=== PATIENT | male | born 1950 | race Caucasian/White ===

== ENCOUNTER 2021-11-09 18:14 | Inpatient (IN) | payer MEDICARE, BC ==
[~2021-11-09] VITALS: Ht 177.8 cm; Wt 77.7 kg
[2021-11-09 19:06] LABS: BASOPHILS # (AUTO) 0.1 X10'3 (0-0.2); BASOPHILS % (AUTO) 0.6 % (0-1); EOSINOPHILS # (AUTO) 0.1 X10'3 (0-0.9); EOSINOPHILS % (AUTO) 0.9 % (0-6); HEMATOCRIT 42.3 % (42.0-52.0); HEMOGLOBIN 14.2 g/dl (14.0-17.9); LYMPHOCYTES # (AUTO) 2.4 X10'3 (1.1-4.8); LYMPHOCYTES % (AUTO) 24.9 % (21-51); MEAN CORPUSCULAR HEMOGLOBIN 31.9 PG (27.0-31.0); MEAN CORPUSCULAR HGB CONC 33.5 g/dL (33.0-36.5); MEAN CORPUSCULAR VOLUME 95.2 FL (78-98); MEAN PLATELET VOLUME 8.6 FL (7.4-10.4); MONOCYTES # (AUTO) 0.9 X10'3 (0-0.9); MONOCYTES % (AUTO) 8.9 % (2-12); NEUTROPHILS # (AUTO) 6.2 X10'3 (1.8-7.7); NEUTROPHILS % (AUTO) 64.7 % (42-75); PLATELET COUNT 204 X10'3 (140-440); RED BLOOD COUNT 4.44 X10'6 (4.70-6.10); RED CELL DISTRIBUTION WIDTH 13.5 % (11.5-14.5); WHITE BLOOD COUNT 9.7 X10'3 (4.5-11.0)
[2021-11-09 19:17] LABS: ALANINE AMINOTRANSFERASE 26 U/L (12-78); ALBUMIN 3.3 G/DL (3.4-5.0); ALBUMIN/GLOBULIN RATIO 1.1 (1.1-1.5); ALKALINE PHOSPHATASE 78 IU/L (46-116); ANION GAP 8 (8-16); ASPARTATE AMINO TRANSFERASE 16 U/L (10-37); BILIRUBIN,TOTAL 0.3 MG/DL (0.1-1.0); BLOOD UREA NITROGEN 15 MG/DL (7-18); BUN/CREATININE RATIO 23.8 (5.4-32.0); CALCIUM 8.4 MG/DL (8.5-10.1); CHLORIDE 111 MMOL/L (99-107); CREATININE 0.63 MG/DL (0.60-1.10); GLUCOSE 104 MG/DL (70-104); POTASSIUM 3.7 MMOL/L (3.5-5.1); SODIUM 144 MMOL/L (135-145); TOTAL CARBON DIOXIDE 24.7 MMOL/L (24-32); TOTAL PROTEIN 6.2 G/DL (6.4-8.2); eGFR > 90 ML/MIN
[2021-11-09] MEDS ORDERED: heparin 10,000 units/1 ML INJ IV PRN (19:35)
[2021-11-09] MEDS ORDERED: magnesium 4gm in 100ml NS 100 ML IV PRN (19:45)
[2021-11-09] MEDS ORDERED: mag hydrox/Alum hydrox/simeth 30ml oral suspension PO PRN (19:45)
[2021-11-09] MEDS ORDERED: potassium CL 10mEq/100ml bag 100 ML IV PRN (19:45)
[2021-11-09] MEDS ORDERED: ondansetron/PF 4mg/2ml inj IV PRN (19:45)
[2021-11-09] MEDS ORDERED: acetaminophen 325mg tablet PO PRN ×2 (19:45)
[2021-11-09] MEDS ORDERED: magnesium Cl slow-release 64mg tablet PO PRN (19:45)
[2021-11-09] MEDS ORDERED: magnesium hydroxide 30ml (MOM) UD suspension PO PRN (19:45)
[2021-11-09] MEDS ORDERED: POTASSIUM BICARB 20meq eff tab 20 MEQ TABLET.EFF PO PRN ×2 (19:45)
[2021-11-09] MEDS ORDERED: magnesium 2GM in 50ml NS 50 ML IV PRN (19:45)
[2021-11-09] MEDS ORDERED: morphine 2 MG/ML inj. syringe IV PRN (19:45)
[2021-11-09] MEDS ORDERED: metoprolol tartrate 50mg tablet PO SCH (20:00)
[2021-11-09] MEDS: docusate sod 100mg capsule PO SCH (20:00)
[2021-11-09 20:10] LABS: HEMOGLOBIN A1C 5.3 % (4.5-6.2)
[2021-11-09] MEDS: K and/or MAG REPLACEMENT MC SCH (20:13)
[2021-11-09] MEDS: heparin 25,000 UNIT/250ml bag 250 ML IV SCH (20:46)
--- NOTE | 2021-11-09 20:55 | NUR ---
Heparin infusion continued previously from [place]. Heparin rate changed to this hospital's parameters. PTT ordered six hours out.
[2021-11-09] MEDS ORDERED: phenobarbital 30mg tablet PO ONE (21:00)
--- NOTE | 2021-11-09 21:03 | NUR ---
Patient states takes 90mg of Phenobarbital at home at bedtime. Doctor notified and given order to give 90mg of Phenobarbital at bedtime and to get a trough lab level. Both ordered.
[2021-11-09] MEDS: atorvastatin 20mg tablet PO SCH (21:18)
[2021-11-09] MEDS: phenobarbital 30mg tablet PO SCH (21:18)
--- NOTE | 2021-11-09 21:28 | NUR ---
Phenobarbital changed to 30mg three times a day per patient report. Two 30mg tablets wasted with Herman PAGAN
[2021-11-09 23:43] VITALS: BP 144/81
[2021-11-09 23:56] LABS: MAGNESIUM 1.9 MG/DL (1.5-2.4)
[2021-11-10] MEDS: morphine 2 MG/ML inj. syringe IV PRN ×3 (01:32→13:19)
[2021-11-10 02:00] VITALS: BP 135/78
[2021-11-10 03:40] LABS: BASOPHILS % (AUTO) 0.5 % (0-1); EOSINOPHILS # (AUTO) 0.1 X10'3 (0-0.9); EOSINOPHILS % (AUTO) 1.4 % (0-6); HEMATOCRIT 41.1 % (42.0-52.0); LYMPHOCYTES % (AUTO) 23.3 % (21-51); MEAN CORPUSCULAR HEMOGLOBIN 31.5 PG (27.0-31.0); MEAN CORPUSCULAR HGB CONC 34.1 g/dL (33.0-36.5); MEAN CORPUSCULAR VOLUME 92.6 FL (78-98); MEAN PLATELET VOLUME 8.5 FL (7.4-10.4); MONOCYTES # (AUTO) 0.7 X10'3 (0-0.9); MONOCYTES % (AUTO) 7.9 % (2-12); NEUTROPHILS # (AUTO) 5.9 X10'3 (1.8-7.7); NEUTROPHILS % (AUTO) 66.9 % (42-75); PLATELET COUNT 190 X10'3 (140-440); RED BLOOD COUNT 4.44 X10'6 (4.70-6.10); RED CELL DISTRIBUTION WIDTH 13.2 % (11.5-14.5); WHITE BLOOD COUNT 8.8 X10'3 (4.5-11.0)
[2021-11-10 03:58] LABS: ALANINE AMINOTRANSFERASE 28 U/L (12-78); ALBUMIN 3.5 G/DL (3.4-5.0); ALBUMIN/GLOBULIN RATIO 1.2 (1.1-1.5); ALKALINE PHOSPHATASE 78 IU/L (46-116); ANION GAP 8 (8-16); ASPARTATE AMINO TRANSFERASE 18 U/L (10-37); BILIRUBIN,TOTAL 0.4 MG/DL (0.1-1.0); BLOOD UREA NITROGEN 15 MG/DL (7-18); BUN/CREATININE RATIO 23.4 (5.4-32.0); CALCIUM 8.4 MG/DL (8.5-10.1); CHLORIDE 108 MMOL/L (99-107); CHOL/HDL RATIO 3.2 (0.00-4.99); CHOLESTEROL 198 MG/DL (0-200); CREATININE 0.64 MG/DL (0.60-1.10); GLUCOSE 96 MG/DL (70-104); HDL CHOLESTEROL 61 MG/DL (35-60); LDL CHOLESTEROL 118 MG/DL (50-100); MAGNESIUM 1.8 MG/DL (1.5-2.4); POTASSIUM 3.7 MMOL/L (3.5-5.1); SODIUM 142 MMOL/L (135-145); TOTAL CARBON DIOXIDE 25.6 MMOL/L (24-32); TOTAL PROTEIN 6.4 G/DL (6.4-8.2); TRIGLYCERIDES 72 MG/DL (20-135); eGFR > 90 ML/MIN
--- NOTE | 2021-11-10 04:37 | NUR ---
Notified Dr. Moise of troponin critical 120.
--- NOTE | 2021-11-10 04:50 | NUR ---
Called lab, as PTT still hasn't resulted Addendum: 11/10/21 at 0453 by Bennie Charlton RN Spoke with Rajan, stated that it was a "small technical error, didn't hit start".
[2021-11-10] MEDS: heparin 10,000 units/1 ML INJ IV PRN ×2 (05:47→12:25)
[2021-11-10 06:00] VITALS: BP 129/79
--- NOTE | 2021-11-10 07:29 | NUR ---
Pt. requesting phenobarbital now.
[2021-11-10] MEDS: metoprolol tartrate 25mg tablet PO SCH ×2 (08:00→22:29)
[2021-11-10] MEDS: K and/or MAG REPLACEMENT MC SCH ×2 (08:00→20:00)
[2021-11-10] MEDS: atorvastatin 20mg tablet PO SCH (08:28)
[2021-11-10] MEDS: docusate sod 100mg capsule PO SCH ×2 (08:28→20:00)
[2021-11-10] MEDS: phenobarbital 30mg tablet PO SCH ×3 (08:29→22:30)
[2021-11-10 11:00] VITALS: BP 146/82
[2021-11-10] MEDS: heparin 25,000 UNIT/250ml bag 250 ML IV SCH (12:30)
--- NOTE | 2021-11-10 13:13 | NUR ---
CALLED PHARMACY SPOKE W/ CAROLYNN. LET HER KNOW [facility] DOES NOT HAVE ANY PHENOBARBITAL IN IT AND THAT IT NEEDED TO BE DELIVERED THIS AM. TECH STATES ITS A NARC AND TO GO CHECK [facility] AGAIN AND THAT SHE WILL NOT DELIVER. MEDICATION NOT AVAILABLE.
[2021-11-10] MEDS ORDERED: NO HOME MEDS (13:38)
[2021-11-10] MEDS ORDERED: PHEN30TA49 PO (13:38)
[2021-11-10] MEDS ORDERED: aminophylline 250mg/10ml inj. IV PRN (13:55)
[2021-11-10] MEDS ORDERED: nitroGLYCERIN 0.4mg SUBLingual tab SL PRN (13:55)
[2021-11-10] MEDS ORDERED: metoprolol tartrate 1mg/ml inj IV PRN (13:55)
[2021-11-10] MEDS ORDERED: regadenoson 0.4mg/5ml syringe IV PRN (13:55)
--- NOTE | 2021-11-10 14:33 | NUR ---
Primary RN Rosalva asked me to DC patient heparin gtt per MD orders. Heparin gtt dc'd flushed IV with 10 cc NS. Patients at bedside.
[2021-11-10 15:44] VITALS: BP 142/79
[2021-11-10 18:00] VITALS: BP 162/84
--- NOTE | 2021-11-10 18:28 | NUR ---
Gave report to Jigna PAGAN.
[2021-11-10] MEDS ORDERED: phenobarbital 30mg tablet PO SCH (21:00)
[2021-11-10 22:00] VITALS: BP 141/82
[2021-11-10] MEDS: heparin, porcine 5000 units/ml vial SQ SCH (22:30)
[2021-11-11] VITALS (13 sets, daily range): BP systolic 130–165; BP diastolic 67–90
[2021-11-11 06:34] LABS: BASOPHILS # (AUTO) 0.1 X10'3 (0-0.2); BASOPHILS % (AUTO) 0.8 % (0-1); EOSINOPHILS # (AUTO) 0.1 X10'3 (0-0.9); HEMATOCRIT 47.2 % (42.0-52.0); LYMPHOCYTES # (AUTO) 3.3 X10'3 (1.1-4.8); LYMPHOCYTES % (AUTO) 32.5 % (21-51); MEAN CORPUSCULAR HEMOGLOBIN 31.8 PG (27.0-31.0); MEAN CORPUSCULAR HGB CONC 33.9 g/dL (33.0-36.5); MEAN CORPUSCULAR VOLUME 93.8 FL (78-98); MEAN PLATELET VOLUME 8.9 FL (7.4-10.4); MONOCYTES # (AUTO) 0.9 X10'3 (0-0.9); MONOCYTES % (AUTO) 9.2 % (2-12); NEUTROPHILS # (AUTO) 5.7 X10'3 (1.8-7.7); NEUTROPHILS % (AUTO) 56.5 % (42-75); PLATELET COUNT 241 X10'3 (140-440); RED BLOOD COUNT 5.03 X10'6 (4.70-6.10); RED CELL DISTRIBUTION WIDTH 13.5 % (11.5-14.5); WHITE BLOOD COUNT 10.2 X10'3 (4.5-11.0)
[2021-11-11] MEDS: atorvastatin 20mg tablet PO SCH (07:32)
[2021-11-11] MEDS: phenobarbital 30mg tablet PO SCH ×3 (07:33→21:01)
[2021-11-11] MEDS: heparin, porcine 5000 units/ml vial SQ SCH ×2 (07:33→20:00)
[2021-11-11] MEDS: docusate sod 100mg capsule PO SCH ×2 (07:33→21:02)
[2021-11-11] MEDS: K and/or MAG REPLACEMENT MC SCH ×2 (07:34→20:00)
[2021-11-11 07:35] LABS: ALANINE AMINOTRANSFERASE 30 U/L (12-78); ALBUMIN 3.8 G/DL (3.4-5.0); ALBUMIN/GLOBULIN RATIO 1.2 (1.1-1.5); ALKALINE PHOSPHATASE 99 IU/L (46-116); ANION GAP 9 (8-16); ASPARTATE AMINO TRANSFERASE 23 U/L (10-37); BILIRUBIN,TOTAL 0.6 MG/DL (0.1-1.0); BLOOD UREA NITROGEN 16 MG/DL (7-18); BUN/CREATININE RATIO 20.8 (5.4-32.0); CALCIUM 8.9 MG/DL (8.5-10.1); CHLORIDE 106 MMOL/L (99-107); CREATININE 0.77 MG/DL (0.60-1.10); GLUCOSE 101 MG/DL (70-104); POTASSIUM 4.2 MMOL/L (3.5-5.1); SODIUM 138 MMOL/L (135-145); TOTAL CARBON DIOXIDE 22.8 MMOL/L (24-32); eGFR > 90 ML/MIN
[2021-11-11] MEDS: metoprolol tartrate 25mg tablet PO SCH ×2 (08:00→21:02)
--- NOTE | 2021-11-11 08:40 | NUR ---
Pt.down to Lexiscan with [facility] med staff.
--- NOTE | 2021-11-11 13:08 | NUR ---
Message: Tremayne Kan [id number] Wants to make sure he is treated for the dx you gave him of costochondritis and GERD since he is still have mild CP. Asking for protonix and steroid meds to go home with if you will discharge him. Rosalva [id number]
[2021-11-11] MEDS: aspirin 325mg tablet PO ONE ×2 (13:18→13:19)
[2021-11-11] MEDS: normal saline 1000ml 1,000 ML IV SCH (15:18)
[2021-11-11] MEDS ORDERED: fentaNYL/PF 50MCG/1 ML 2ML syringe ONE (15:27)
[2021-11-11] MEDS ORDERED: diphenhydrAMINE 50 mg/ml inj ONE (15:27)
[2021-11-11] MEDS ORDERED: midazolam 1 mg/ML 2ml injection ONE (15:28)
[2021-11-11] MEDS ORDERED: iohexol 350MG/ML 100ml bottle IV ONE ×2 (15:28→16:28)
--- NOTE | 2021-11-11 16:06 | NUR ---
Pt. down to photographic laboratory technician for angiogram with CORAL
--- NOTE | 2021-11-11 17:42 | NUR ---
[facility] rounding on pt whom just returned from clinical laboratory medical director. Pt. on post-op VS, VSS, R groin site soft. Pt. to lay flat until 2315. Can eat until midnight and then NPO. 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 [facility] states PA will place surgical orders. He wants pt. on heparin drip non-protocol r/t severity of stenosis. Pt. aware and in agreement of POC.
[2021-11-11] MEDS ORDERED: ondansetron/PF 4mg/2ml inj IV PRN (18:10)
[2021-11-11] MEDS ORDERED: HYDROcodone/acetaminophen 10/325mg tab PO PRN (18:15)
[2021-11-11] MEDS ORDERED: HYDROcodone/acetaminophen 5mg/325mg tablet PO PRN (18:15)
[2021-11-11] MEDS ORDERED: proCHLORperazine 10 MG/2 ml inj IV PRN (18:15)
[2021-11-11] MEDS ORDERED: nitroGLYCERIN 0.4mg SUBLingual tab SL PRN (18:15)
[2021-11-11] MEDS ORDERED: OXAZEpam 15mg capsule PO PRN (18:15)
[2021-11-11] MEDS ORDERED: ringers solution, lacted 1,000 ML IV ONE (18:20)
--- NOTE | 2021-11-11 18:51 | NUR ---
Gave report to Lion PAGAN.
[2021-11-11] MEDS ORDERED: insulin glargine (Lantus) pen - multi-dose SQ PRN (18:55)
[2021-11-11] MEDS ORDERED: cefazolin/dext.iso 2gm/100ml 100 ML IV ONE (18:55)
[2021-11-11] MEDS ORDERED: dextrose 50%-water 50ml dispensing syringe IV PRN (18:55)
[2021-11-11] MEDS ORDERED: Insulin Reg/NS 100units/100mL 100 ML IV SCH (18:55)
[2021-11-11] MEDS ORDERED: diphenhydrAMINE 25mg capsule PO PRN (18:55)
[2021-11-11] MEDS ORDERED: ondansetron 4mg rapidly disintigrating tab PO PRN (18:55)
[2021-11-11] MEDS ORDERED: heparin 25,000 UNIT/250ml bag 250 ML IV ONE (19:25)
[2021-11-11 19:33] LABS: CLARITY,URINE CLEAR (Clear); COLOR,URINE YELLOW (Yellow); GLUCOSE, URINE NEGATIVE (Neg); KETONES,URINE 15 mg/dl (Neg); LEUKOCYTE ESTERASE ,URINE NEGATIVE (Neg); NITRITES, URINE NEGATIVE (Neg); OCCULT BLOOD,URINE TRACE-INTACT (Neg); PH,URINE 5.5 (4.8-8.0); PROTEIN,URINE NEGATIVE (Neg); UROBILINOGEN,URINE 0.2 E.U/dL (0.2-1.0)
[2021-11-11 19:35] LABS: UA COLLECTION TYPE CLN CATCH MIDSTREAM
[2021-11-11 19:44] LABS: BACTERIA,URINE NONE SEEN /HPF (Neg); RBC,URINE NONE SEEN /HPF (0-2); WBC,URINE NONE SEEN /HPF (0-4)
[2021-11-11 19:45] LABS: SQUAMOUS EPITHELIAL CELL,UR NONE SEEN /LPF (FEW)
[2021-11-11] MEDS ORDERED: mupirocin 2% ointment 22GM NS SCH (20:00)
[2021-11-11 20:01] LABS: APTT 53 SECONDS (22-32)
--- NOTE | 2021-11-11 20:42 | NUR ---
PATIENT BACK FROM [facility], STILL AWAITING VEIN MAPPING, AND CAROTIDS, LUISA [id number]
[2021-11-11] MEDS: mupirocin 2% nasal ointment 1gm UD NS SCH (21:03)
[2021-11-11 21:26] LABS: ABG BASE EXCESS -0.2 mmol/L (-2.0-2.0); ABG HCO3 24.1 mmol/L (22.0-26.0); ABG OXYGEN SATURATION 94.8 % (94-97); ABG PCO2 (T) 38.5 mmHg (35.0-48.0); ABG PO2 (T) 71.7 mmHg (75.0-100.0); ALLEN'S TEST POSITIVE; FCOHb 0.3 % (0.0-3.9); FMetHb 0.3 % (0.0-1.5); FO2Hb 94.2 % (94-97); TOTAL HEMOGLOBIN 15.9 G/dl (14.0-18.0)
[2021-11-12] VITALS (21 sets, daily range): BP systolic 109–153; BP diastolic 56–86
[2021-11-12] MEDS: normal saline 1000ml 1,000 ML IV SCH (01:20)
[2021-11-12 03:31] LABS: BASOPHILS % (AUTO) 0.4 % (0-1); EOSINOPHILS % (AUTO) 0.3 % (0-6); HEMATOCRIT 43.4 % (42.0-52.0); HEMOGLOBIN 14.6 g/dl (14.0-17.9); LYMPHOCYTES % (AUTO) 19.4 % (21-51); MEAN CORPUSCULAR HEMOGLOBIN 31.4 PG (27.0-31.0); MEAN CORPUSCULAR HGB CONC 33.5 g/dL (33.0-36.5); MEAN CORPUSCULAR VOLUME 93.6 FL (78-98); MEAN PLATELET VOLUME 8.6 FL (7.4-10.4); MONOCYTES # (AUTO) 0.9 X10'3 (0-0.9); MONOCYTES % (AUTO) 8.7 % (2-12); NEUTROPHILS # (AUTO) 7.3 X10'3 (1.8-7.7); NEUTROPHILS % (AUTO) 71.2 % (42-75); PLATELET COUNT 214 X10'3 (140-440); RED BLOOD COUNT 4.64 X10'6 (4.70-6.10); RED CELL DISTRIBUTION WIDTH 13.3 % (11.5-14.5); WHITE BLOOD COUNT 10.2 X10'3 (4.5-11.0)
[2021-11-12 03:51] LABS: ALANINE AMINOTRANSFERASE 30 U/L (12-78); ALBUMIN 3.4 G/DL (3.4-5.0); ALBUMIN/GLOBULIN RATIO 1.2 (1.1-1.5); ALKALINE PHOSPHATASE 90 IU/L (46-116); ANION GAP 11 (8-16); ASPARTATE AMINO TRANSFERASE 20 U/L (10-37); BILIRUBIN,TOTAL 0.5 MG/DL (0.1-1.0); BLOOD UREA NITROGEN 15 MG/DL (7-18); BUN/CREATININE RATIO 21.4 (5.4-32.0); CALCIUM 8.6 MG/DL (8.5-10.1); CHLORIDE 107 MMOL/L (99-107); GLUCOSE 97 MG/DL (70-104); MAGNESIUM 1.9 MG/DL (1.5-2.4); POTASSIUM 3.8 MMOL/L (3.5-5.1); SODIUM 143 MMOL/L (135-145); TOTAL CARBON DIOXIDE 24.6 MMOL/L (24-32); TOTAL PROTEIN 6.3 G/DL (6.4-8.2); eGFR > 90 ML/MIN
[2021-11-12] MEDS ORDERED: famotidine 20mg tablet PO ONE ×2 (04:30→04:40)
[2021-11-12] MEDS ORDERED: gabapentin 400mg capsule PO ONE (04:30)
[2021-11-12] MEDS: mupirocin 2% nasal ointment 1gm UD NS SCH ×2 (05:03→20:08)
[2021-11-12] MEDS ORDERED: NUT.TX.IMPAIRED DIGEST FXN (Ensure Clear) 237 ML PO SCH (05:15)
[2021-11-12] MEDS ORDERED: cefazolin/dext.iso 2gm/100ml 100 ML IV ONE (05:30)
[2021-11-12] MEDS ORDERED: LORazepam 2 mg/ml vial IV ONE ×2 (06:00→07:50)
--- NOTE | 2021-11-12 06:28 | NUR ---
Change of shift report given to EJ Donato. Issues reprioritized. CABG prep completed. pt stable, No acute complaints.
[2021-11-12] MEDS ORDERED: ceFAZolin 1000mg inj ONE ×2 (06:50→11:47)
[2021-11-12] MEDS: docusate sod 100mg capsule PO SCH (08:00)
[2021-11-12] MEDS: heparin, porcine 5000 units/ml vial SQ SCH (08:00)
[2021-11-12] MEDS: phenobarbital 30mg tablet PO SCH (08:00)
[2021-11-12] MEDS ORDERED: sodium bicarbonate (8.4%) 1 mEq/ml syringe ONE (08:00)
[2021-11-12] MEDS ORDERED: aminocaproic acid 250 MG/1 ML inj. ONE ×2 (08:00→08:22)
[2021-11-12] MEDS ORDERED: heparin 10,000 units/1 ML INJ ONE ×2 (08:00)
[2021-11-12] MEDS ORDERED: potassium Cl 2 mEq/ml inj IV ONE (08:00)
[2021-11-12] MEDS ORDERED: phenylephrine 10mg/ml inj. ONE ×2 (08:00→09:46)
[2021-11-12] MEDS: metoprolol tartrate 25mg tablet PO SCH (08:00)
[2021-11-12] MEDS ORDERED: calcium chloride 100 MG/1 ML inj IV ONE (08:00)
[2021-11-12] MEDS ORDERED: MAGNESIUM SULFATE 4 MEQ/ML (5gm/10ml) injection ONE (08:00)
[2021-11-12] MEDS ORDERED: mannitol 12.5gm/50mL VIAL IV ONE (08:00)
[2021-11-12] MEDS ORDERED: aspirin 81mg, enteric-coated 1 TAB TABLET.DR PO SCH (08:00)
[2021-11-12] MEDS: K and/or MAG REPLACEMENT MC SCH (08:00)
[2021-11-12] MEDS ORDERED: albumin (human) 25% 100 ML IV solution IV ONE (08:00)
[2021-11-12] MEDS: atorvastatin 20mg tablet PO SCH (08:00)
[2021-11-12] MEDS ORDERED: papaverine 30 mg/ml 2ml inj. ONE (08:00)
[2021-11-12] MEDS ORDERED: methylPREDNISolone sod succ 1000mg vial ONE (08:00)
[2021-11-12] MEDS ORDERED: LIDOcaine 2% (20 mg/ml) 5ml cardiac syringe ONE (08:00)
[2021-11-12] MEDS ORDERED: amiodarone 50MG/ML inj IV ONE (08:22)
[2021-11-12] MEDS ORDERED: isoflurane 100ml inhalation liquid IH ONE (08:22)
[2021-11-12] MEDS ORDERED: nitroGLYCERIN in D5W 50mg/250ml (Tridil) infusion IV ONE (08:22)
[2021-11-12] MEDS ORDERED: NORepinephrine 8 MG in NS 250 ML BAG (32 mcg/ml) IV ONE (08:22)
[2021-11-12] MEDS ORDERED: ondansetron/PF 4mg/2ml inj ONE (08:22)
[2021-11-12] MEDS ORDERED: protamine sulf. 10mg/ml inj. IV ONE (08:22)
[2021-11-12] MEDS ORDERED: dexamethasone sod phosphate 10mg/ml inj ONE (08:22)
[2021-11-12] MEDS ORDERED: SUFENTANIL CITRATE 50 MCG/ML 2ml ampule IV ONE (08:40)
[2021-11-12] MEDS ORDERED: MIDAZolam 1mg/ml 10ml vial ONE (08:40)
[2021-11-12 09:27] LABS: ABG BASE EXCESS -3.5 mmol/L (-2.0-2.0); ABG OXYGEN SATURATION 99.8 % (94-97); ABG PCO2 36.2 mmHg (35.0-48.0); ABG PO2 369.8 mmHg (75.0-100.0); CL (ABG) 105 mmol/L (98-110); FCOHb 0.5 % (0.0-3.9); FMetHb 0.3 % (0.0-1.5); GLUCOSE (ABG) 125 mg/dl (70-105); IONIZED CA (ABG) 1.14 mmol/L (1.10-1.43); K (ABG) 3.6 mmol/L (3.5-5.0); TOTAL HEMOGLOBIN 14.1 G/dl (14.0-18.0)
[2021-11-12] MEDS ORDERED: phenobarbital sod 130mg/ml inj. IV ONE (09:30)
[2021-11-12] MEDS ORDERED: 0.9 % SODIUM CHLORIDE 10 ML VIAL ONE (09:46)
[2021-11-12] MEDS ORDERED: propofol inj 20 ML IV ONE (09:46)
[2021-11-12] MEDS ORDERED: LIDOcaine 2% (20mg/ml) 5ml vial ONE (09:46)
[2021-11-12] MEDS ORDERED: rocuronium 10mg/ml inj IV ONE ×3 (09:46)
[2021-11-12] MEDS ORDERED: papaverine 30 mg/ml 2ml inj. ICAR ONE (09:53)
[2021-11-12] MEDS ORDERED: epiNEPHrine 1 mg/ml inj IR ONE (09:55)
[2021-11-12] MEDS ORDERED: heparin 10,000 units/1 ML INJ IR ONE (09:56)
[2021-11-12] MEDS ORDERED: MESSAGE TO PHARMACY IJ ONE (10:00)
[2021-11-12] MEDS ORDERED: MESSAGE TO NURSING PO ONE ×5 (10:00)
[2021-11-12] MEDS ORDERED: fentaNYL/PF 50MCG/1 ML 2ML syringe IV PRN (10:35)
[2021-11-12] MEDS ORDERED: midazolam 1 mg/ML 2ml injection IV PRN (10:35)
[2021-11-12] MEDS ORDERED: propofol 1000mg/100ml bottle 100 ML IV SCH (10:35)
[2021-11-12] MEDS ORDERED: FENTANYL-0.9 % NACL/PF 100 ML IV PRN (10:35)
[2021-11-12 10:42] LABS: ABG BASE EXCESS VENOUS -0.5 mmol/L (-2.0 - 2.0); ABG HCO3 VENOUS 24.1 mmol/L (21.0-28.0); ABG PCO2 VENOUS 39.3 mmHg (41.0-54.0); CL (ABG) 105 mmol/L (98-110); FCOHb VENOUS 0.3 %; FHHb VENOUS 12.3 %; FMetHb VENOUS 0.3 % (0.0 - 0.5); FO2Hb VENOUS 87.1 %; GLUCOSE (ABG) 124 mg/dl (70-105); IONIZED CA (ABG) 1.01 mmol/L (1.10-1.43); K (ABG) 5.6 mmol/L (3.5-5.0); TOTAL HEMOGLOBIN 10.5 G/dl (14.0-18.0)
[2021-11-12 10:47] LABS: ABG HCO3 22.6 mmol/L (22.0-26.0); ABG OXYGEN SATURATION 99.5 % (94-97); ABG PCO2 37.7 mmHg (35.0-48.0); ABG PO2 431.2 mmHg (75.0-100.0); CL (ABG) 105 mmol/L (98-110); FMetHb 0.3 % (0.0-1.5); FO2Hb 99.2 % (94-97); GLUCOSE (ABG) 119 mg/dl (70-105); IONIZED CA (ABG) 1.04 mmol/L (1.10-1.43); K (ABG) 5.4 mmol/L (3.5-5.0); TOTAL HEMOGLOBIN 10.5 G/dl (14.0-18.0)
[2021-11-12] MEDS: amiodarone/D5 360MG/200ML BAG 200 ML IV SCH ×3 (11:00→23:08)
[2021-11-12 11:16] LABS: ABG BASE EXCESS -3.1 mmol/L (-2.0-2.0); ABG HCO3 22.1 mmol/L (22.0-26.0); ABG OXYGEN SATURATION 99.5 % (94-97); ABG PCO2 40.3 mmHg (35.0-48.0); ABG PO2 422.6 mmHg (75.0-100.0); CL (ABG) 106 mmol/L (98-110); FCOHb 0.3 % (0.0-3.9); FMetHb 0.3 % (0.0-1.5); FO2Hb 98.9 % (94-97); GLUCOSE (ABG) 157 mg/dl (70-105); IONIZED CA (ABG) 1.06 mmol/L (1.10-1.43); K (ABG) 4.8 mmol/L (3.5-5.0); TOTAL HEMOGLOBIN 10.9 G/dl (14.0-18.0)
[2021-11-12 11:48] LABS: ABG BASE EXCESS -2.1 mmol/L (-2.0-2.0); ABG OXYGEN SATURATION 99.2 % (94-97); ABG PCO2 40.8 mmHg (35.0-48.0); ABG PO2 230.4 mmHg (75.0-100.0); CL (ABG) 105 mmol/L (98-110); FCOHb 0.3 % (0.0-3.9); FMetHb 0.3 % (0.0-1.5); FO2Hb 98.6 % (94-97); GLUCOSE (ABG) 167 mg/dl (70-105); IONIZED CA (ABG) 1.02 mmol/L (1.10-1.43); K (ABG) 5.4 mmol/L (3.5-5.0); TOTAL HEMOGLOBIN 10.3 G/dl (14.0-18.0)
[2021-11-12 12:24] LABS: ABG BASE EXCESS -3.2 mmol/L (-2.0-2.0); ABG HCO3 19.7 mmol/L (22.0-26.0); ABG OXYGEN SATURATION 99.4 % (94-97); ABG PCO2 28.4 mmHg (35.0-48.0); ABG PO2 257.8 mmHg (75.0-100.0); CL (ABG) 106 mmol/L (98-110); FCOHb 0.1 % (0.0-3.9); FMetHb 0.3 % (0.0-1.5); GLUCOSE (ABG) 159 mg/dl (70-105); IONIZED CA (ABG) 1.18 mmol/L (1.10-1.43); K (ABG) 4.4 mmol/L (3.5-5.0); TOTAL HEMOGLOBIN 10.3 G/dl (14.0-18.0)
[2021-11-12 12:27] LABS: ACTIVATED CLOTTING TIME 120 SEC (101-148)
[2021-11-12] MEDS ORDERED: albumin (Human) 5% 250ml 250 ML IV ONE (13:09)
[2021-11-12] MEDS ORDERED: niCARDipine-NS 40mg/200ml IVPB 200 ML IV PRN (13:10)
[2021-11-12] MEDS ORDERED: sodium phosphate inj. 30 MMOL in dextrose 5%-water 250 ML IV PRN (13:10)
[2021-11-12] MEDS: Insulin Reg/NS 100units/100mL 100 ML IV SCH (13:10)
[2021-11-12] MEDS ORDERED: potassium Cl 20 mEq SR tablet PO PRN (13:10)
[2021-11-12] MEDS ORDERED: dextrose 50%-water 50ml dispensing syringe IV PRN (13:10)
[2021-11-12] MEDS ORDERED: normal saline 250ml IV soln 250 ML IV PRN (13:10)
[2021-11-12] MEDS ORDERED: sodium chloride 0.45% 1,000 ML IV SCH (13:10)
[2021-11-12] MEDS ORDERED: magnesium 4gm in 100ml NS 100 ML IV PRN (13:10)
[2021-11-12] MEDS ORDERED: magnesium hydroxide 30ml (MOM) UD suspension PO PRN (13:10)
[2021-11-12] MEDS ORDERED: Neutra Phos packet PO PRN (13:10)
[2021-11-12] MEDS ORDERED: sodium phosphate inj. 15 MMOL in dextrose 5%-water 250 ML IV PRN (13:10)
[2021-11-12] MEDS ORDERED: potassium CL 10mEq/100ml bag 100 ML IV PRN (13:10)
[2021-11-12] MEDS ORDERED: acetaminophen 325mg tablet PO PRN ×2 (13:10)
[2021-11-12] MEDS ORDERED: bisacodyl 10mg suppository rectal RC PRN (13:10)
[2021-11-12] MEDS ORDERED: metoclopramide 5 mg/ml inj IV PRN (13:10)
[2021-11-12] MEDS ORDERED: magnesium citrate 296ml oral solution PO PRN (13:10)
[2021-11-12] MEDS ORDERED: ondansetron/PF 4mg/2ml inj IV PRN (13:10)
[2021-11-12] MEDS ORDERED: DOPamine 400mg/D5W 250ml 250 ML IV PRN (13:10)
[2021-11-12] MEDS ORDERED: insulin glargine (Lantus) pen - multi-dose SQ PRN (13:10)
[2021-11-12] MEDS ORDERED: nitroGLYCERIN-Tridil 50MG/D5W 250 ML IV PRN (13:10)
[2021-11-12] MEDS ORDERED: mineral oil 133ml enema RC PRN (13:10)
[2021-11-12] MEDS ORDERED: albumin (Human) 5% 250ml 250 ML IV PRN (13:10)
--- NOTE | 2021-11-12 13:24 | NUR ---
CABG Consult: Pt s/p CABGx3 this admit per EMR; would benefit from written/verbal high protein/HH diet eds once appropriate post-op. Addendum: 11/12/21 at [address] Amended: Links added.
--- NOTE | 2021-11-12 13:30 | NUR ---
Received to room 2013, accompanied by MDs and surgical crew. Placed on ventilator, to office services manager, arterial line and PA line pressure zeroed & monitored. Chest tubes to suction at 20 cm. Tabares cath to gravity drainage. Dressings are dry and intact. See assessment record. All vasoactive drugs are infusing via central line.
[2021-11-12 13:52] LABS: BASOPHILS % (AUTO) 0.2 % (0-1); EOSINOPHILS % (AUTO) 0.2 % (0-6); HEMATOCRIT 37.8 % (42.0-52.0); HEMOGLOBIN 12.7 g/dl (14.0-17.9); LYMPHOCYTES # (AUTO) 0.6 X10'3 (1.1-4.8); LYMPHOCYTES % (AUTO) 3.7 % (21-51); MEAN CORPUSCULAR HEMOGLOBIN 31.5 PG (27.0-31.0); MEAN CORPUSCULAR HGB CONC 33.6 g/dL (33.0-36.5); MEAN CORPUSCULAR VOLUME 93.6 FL (78-98); MEAN PLATELET VOLUME 8.5 FL (7.4-10.4); MONOCYTES # (AUTO) 0.8 X10'3 (0-0.9); MONOCYTES % (AUTO) 5.5 % (2-12); NEUTROPHILS # (AUTO) 13.8 X10'3 (1.8-7.7); NEUTROPHILS % (AUTO) 90.4 % (42-75); PLATELET COUNT 132 X10'3 (140-440); RED BLOOD COUNT 4.04 X10'6 (4.70-6.10); WHITE BLOOD COUNT 15.3 X10'3 (4.5-11.0)
[2021-11-12 13:56] LABS: ABG BASE EXCESS -1.1 mmol/L (-2.0-2.0); ABG OXYGEN SATURATION 98.2 % (94-97); ABG PCO2 (T) 40.1 mmHg (35.0-48.0); ABG PO2 (T) 125.7 mmHg (75.0-100.0); FCOHb 0.3 % (0.0-3.9); FMetHb 0.4 % (0.0-1.5); FO2Hb 97.5 % (94-97); PATIENT TEMPERATURE 36.1; PEEP 5 cm H2O; RESPIRATORY RATE 12 b/min; TIDAL VOLUME 550 mL; TOTAL HEMOGLOBIN 13.5 G/dl (14.0-18.0)
[2021-11-12 14:04] LABS: APTT 31 SECONDS (22-32)
[2021-11-12 14:05] LABS: ALANINE AMINOTRANSFERASE 22 U/L (12-78); ALBUMIN 2.6 G/DL (3.4-5.0); ALBUMIN/GLOBULIN RATIO 1.4 (1.1-1.5); ALKALINE PHOSPHATASE 64 IU/L (46-116); ANION GAP 10 (8-16); ASPARTATE AMINO TRANSFERASE 33 U/L (10-37); BILIRUBIN,TOTAL 0.7 MG/DL (0.1-1.0); BLOOD UREA NITROGEN 15 MG/DL (7-18); CALCIUM 7.2 MG/DL (8.5-10.1); CHLORIDE 113 MMOL/L (99-107); CREATININE 0.75 MG/DL (0.60-1.10); GLUCOSE 148 MG/DL (70-104); MAGNESIUM 2.3 MG/DL (1.5-2.4); PHOSPHORUS 1.8 MG/DL (2.3-4.5); POTASSIUM 3.6 MMOL/L (3.5-5.1); SODIUM 148 MMOL/L (135-145); TOTAL PROTEIN 4.5 G/DL (6.4-8.2); eGFR > 90 ML/MIN
[2021-11-12] MEDS: potassium Cl 20mEq/100mL bag 100 ML IV PRN ×3 (14:21→17:09)
[2021-11-12] MEDS: magnesium 2GM in 50ml NS 50 ML IV PRN (14:30)
[2021-11-12] MEDS: phenobarbital sod 130mg/ml inj. IV SCH ×2 (15:20→23:43)
[2021-11-12] MEDS: ceFAZolin/D5W- 1GM premix 50 ML IV SCH (16:28)
--- NOTE | 2021-11-12 18:07 | NUR ---
Update given to Dr. Lopez. aware patient doing well on spontaneous. Per MD, he would like patient extubated once a little more awake and would appreciate a call prior to extubation.
--- NOTE | 2021-11-12 18:19 | NUR ---
Problems reprioritized. Patient report given, questions answered & plan of care reviewed with Adriane PAGAN.
--- NOTE | 2021-11-12 18:20 | NUR ---
Patient in room CICU 2013. I have received report from Osmel PAGAN and had the opportunity to ask questions and assume patient care.
[2021-11-12] MEDS: morphine 2 MG/ML inj. syringe IV PRN ×2 (19:31→21:48)
[2021-11-12] MEDS: mupirocin 2% ointment 22GM NS SCH (20:00)
[2021-11-12] MEDS: sennosides/docusate sodium tablet PO SCH (20:00)
[2021-11-12] MEDS: vancomycin/NS 1 GM ADD-VANTAGE 250 ML IV SCH (20:08)
[2021-11-12 20:30] LABS: BASOPHILS % (AUTO) 0.1 % (0-1); EOSINOPHILS % (AUTO) 0.1 % (0-6); HEMATOCRIT 38.9 % (42.0-52.0); LYMPHOCYTES # (AUTO) 0.4 X10'3 (1.1-4.8); LYMPHOCYTES % (AUTO) 2.5 % (21-51); MEAN CORPUSCULAR HEMOGLOBIN 31.7 PG (27.0-31.0); MEAN CORPUSCULAR HGB CONC 33.5 g/dL (33.0-36.5); MEAN CORPUSCULAR VOLUME 94.8 FL (78-98); MEAN PLATELET VOLUME 8.7 FL (7.4-10.4); MONOCYTES # (AUTO) 0.5 X10'3 (0-0.9); MONOCYTES % (AUTO) 3.3 % (2-12); NEUTROPHILS # (AUTO) 14.7 X10'3 (1.8-7.7); PLATELET COUNT 136 X10'3 (140-440); RED BLOOD COUNT 4.11 X10'6 (4.70-6.10); RED CELL DISTRIBUTION WIDTH 13.5 % (11.5-14.5); WHITE BLOOD COUNT 15.7 X10'3 (4.5-11.0)
--- NOTE | 2021-11-12 20:38 | NUR ---
Patient starting to wake up, nods heads to questioning but falls back to sleep quickly. Sats well maintained on 40% FiO2. Dr. Lopez updated on patient status including current hemodynamics and output. Okay to decrease Amio drip to 0.5mg maintenance dose and change PM phenobarbital dose to PO to be given after extubation if tolerated.
[2021-11-12 20:44] LABS: ANION GAP 10 (8-16); BLOOD UREA NITROGEN 14 MG/DL (7-18); BUN/CREATININE RATIO 20.6 (5.4-32.0); CALCIUM 7.5 MG/DL (8.5-10.1); CHLORIDE 112 MMOL/L (99-107); CREATININE 0.68 MG/DL (0.60-1.10); GLUCOSE 158 MG/DL (70-104); MAGNESIUM 2.3 MG/DL (1.5-2.4); PHOSPHORUS 3.1 MG/DL (2.3-4.5); POTASSIUM 4.1 MMOL/L (3.5-5.1); SODIUM 145 MMOL/L (135-145); eGFR > 90 ML/MIN
[2021-11-12] MEDS: atorvastatin 10mg tablet PO SCH (21:00)
[2021-11-12] MEDS: gabapentin 300mg capsule PO SCH (21:00)
[2021-11-12 22:50] LABS: ABG BASE EXCESS -2.8 mmol/L (-2.0-2.0); ABG HCO3 21.8 mmol/L (22.0-26.0); ABG OXYGEN SATURATION 93.4 % (94-97); ABG PCO2 (T) 36.6 mmHg (35.0-48.0); ABG PO2 (T) 64.8 mmHg (75.0-100.0); FCOHb 0.1 % (0.0-3.9); FMetHb 0.2 % (0.0-1.5); FO2Hb 93.1 % (94-97); PATIENT TEMPERATURE 36.5; PEEP 5 cm H2O; TOTAL HEMOGLOBIN 13.6 G/dl (14.0-18.0)
[2021-11-12] MEDS: morphine 4 MG/ML inj SYRINge IV PRN (23:02)
[2021-11-13] VITALS (24 sets, daily range): BP systolic 97–153; BP diastolic 61–94
[2021-11-13] MEDS: ceFAZolin/D5W- 1GM premix 50 ML IV SCH ×3 (00:06→16:08)
[2021-11-13] MEDS: morphine 4 MG/ML inj SYRINge IV PRN ×2 (00:19→04:12)
[2021-11-13 02:48] LABS: BASOPHILS % (AUTO) 0 % (0-1); EOSINOPHILS % (AUTO) 0 % (0-6); HEMATOCRIT 37.8 % (42.0-52.0); HEMOGLOBIN 12.7 g/dl (14.0-17.9); LYMPHOCYTES # (AUTO) 0.7 X10'3 (1.1-4.8); LYMPHOCYTES % (AUTO) 4.2 % (21-51); MEAN CORPUSCULAR HEMOGLOBIN 31.5 PG (27.0-31.0); MEAN CORPUSCULAR HGB CONC 33.5 g/dL (33.0-36.5); MEAN CORPUSCULAR VOLUME 94.1 FL (78-98); MONOCYTES # (AUTO) 1.1 X10'3 (0-0.9); MONOCYTES % (AUTO) 6.5 % (2-12); NEUTROPHILS % (AUTO) 89.3 % (42-75); PLATELET COUNT 130 X10'3 (140-440); RED BLOOD COUNT 4.02 X10'6 (4.70-6.10); RED CELL DISTRIBUTION WIDTH 13.3 % (11.5-14.5); WHITE BLOOD COUNT 16.8 X10'3 (4.5-11.0)
[2021-11-13] MEDS: amiodarone/D5 360MG/200ML BAG 200 ML IV SCH ×2 (02:52→11:16)
[2021-11-13 03:06] LABS: APTT 31 SECONDS (22-32)
[2021-11-13 03:09] LABS: ALANINE AMINOTRANSFERASE 34 U/L (12-78); ALBUMIN/GLOBULIN RATIO 1.4 (1.1-1.5); ALKALINE PHOSPHATASE 62 IU/L (46-116); ANION GAP 6 (8-16); ASPARTATE AMINO TRANSFERASE 96 U/L (10-37); BILIRUBIN,TOTAL 0.3 MG/DL (0.1-1.0); BLOOD UREA NITROGEN 14 MG/DL (7-18); BUN/CREATININE RATIO 23.7 (5.4-32.0); CALCIUM 7.6 MG/DL (8.5-10.1); CHLORIDE 112 MMOL/L (99-107); CREATININE 0.59 MG/DL (0.60-1.10); GLUCOSE 112 MG/DL (70-104); MAGNESIUM 2.2 MG/DL (1.5-2.4); PHOSPHORUS 3.3 MG/DL (2.3-4.5); POTASSIUM 4.2 MMOL/L (3.5-5.1); SODIUM 144 MMOL/L (135-145); TOTAL CARBON DIOXIDE 25.6 MMOL/L (24-32); TOTAL PROTEIN 5.2 G/DL (6.4-8.2); eGFR > 90 ML/MIN
[2021-11-13] MEDS: HYDROcodone/acetaminophen 10/325mg tab PO PRN ×2 (03:16→07:27)
[2021-11-13] MEDS: potassium Cl 20mEq/100mL bag 100 ML IV PRN ×2 (04:36→06:01)
[2021-11-13] MEDS: magnesium 2GM in 50ml NS 50 ML IV PRN (04:36)
--- NOTE | 2021-11-13 06:15 | NUR ---
Problems reprioritized. Patient report given, questions answered & plan of care reviewed with Osmel PAGAN.
[2021-11-13] MEDS: mupirocin 2% ointment 22GM NS SCH ×2 (06:30→20:28)
[2021-11-13] MEDS: gabapentin 300mg capsule PO SCH ×3 (07:27→20:28)
[2021-11-13] MEDS: sennosides/docusate sodium tablet PO SCH ×2 (07:28→20:28)
[2021-11-13] MEDS: vancomycin/NS 1 GM ADD-VANTAGE 250 ML IV SCH ×2 (07:28→20:27)
[2021-11-13] MEDS: mupirocin 2% nasal ointment 1gm UD NS SCH (07:30)
[2021-11-13] MEDS: aspirin 81mg tab.chew PO SCH (07:30)
[2021-11-13] MEDS: amiodarone 200mg tablet PO SCH ×2 (08:42→20:28)
[2021-11-13] MEDS: metoprolol tartrate 12.5mg (1/2 tablet) PO SCH ×2 (08:43→20:28)
[2021-11-13] MEDS: phenobarbital 30mg tablet PO SCH ×3 (09:17→21:39)
[2021-11-13] MEDS: ketorolac trometh. 30mg/ml inj. IV SCH ×3 (09:38→20:27)
[2021-11-13] MEDS ORDERED: ondansetron 4mg rapidly disintigrating tab PO PRN (12:14)
[2021-11-13] MEDS: mineral oil/petrolatum ophthal oint EACHEYE SCH ×3 (12:55→21:40)
[2021-11-13] MEDS ORDERED: DOPamine 400mg/D5W 250ml 250 ML IV PRN (15:37)
--- NOTE | 2021-11-13 16:09 | NUR ---
Dr. Lopez aware of urine output 10-30ml/hour; no new orders at this time. Will continue to monitor.
--- NOTE | 2021-11-13 18:30 | NUR ---
Patient in room CICU 2013. I have received report from EJ Bolivar and had the opportunity to ask questions and assume patient care.
--- NOTE | 2021-11-13 18:36 | NUR ---
Problems reprioritized. Patient report given, questions answered & plan of care reviewed with Madina PAGAN.
[2021-11-13] MEDS: atorvastatin 10mg tablet PO SCH (20:28)
[2021-11-13] MEDS: Insulin Reg/NS 100units/100mL 100 ML IV SCH (21:39)
[2021-11-14] VITALS (24 sets, daily range): BP systolic 90–152; BP diastolic 60–85
[2021-11-14] MEDS: ceFAZolin/D5W- 1GM premix 50 ML IV SCH (00:15)
[2021-11-14] MEDS: HYDROcodone/acetaminophen 10/325mg tab PO PRN ×4 (01:33→20:54)
[2021-11-14] MEDS: ketorolac trometh. 30mg/ml inj. IV SCH (02:00)
[2021-11-14 03:47] LABS: BASOPHILS % (AUTO) 0.2 % (0-1); EOSINOPHILS % (AUTO) 0.1 % (0-6); HEMATOCRIT 35.9 % (42.0-52.0); LYMPHOCYTES # (AUTO) 1.6 X10'3 (1.1-4.8); LYMPHOCYTES % (AUTO) 9.1 % (21-51); MEAN CORPUSCULAR HEMOGLOBIN 31.4 PG (27.0-31.0); MEAN CORPUSCULAR HGB CONC 33.3 g/dL (33.0-36.5); MEAN CORPUSCULAR VOLUME 94.4 FL (78-98); MEAN PLATELET VOLUME 9.5 FL (7.4-10.4); MONOCYTES # (AUTO) 1.3 X10'3 (0-0.9); MONOCYTES % (AUTO) 7.3 % (2-12); NEUTROPHILS # (AUTO) 14.4 X10'3 (1.8-7.7); NEUTROPHILS % (AUTO) 83.3 % (42-75); PLATELET COUNT 114 X10'3 (140-440); RED CELL DISTRIBUTION WIDTH 13.6 % (11.5-14.5); WHITE BLOOD COUNT 17.3 X10'3 (4.5-11.0)
[2021-11-14 03:58] LABS: ALBUMIN 2.8 G/DL (3.4-5.0); ANION GAP 6 (8-16); BLOOD UREA NITROGEN 18 MG/DL (7-18); BUN/CREATININE RATIO 23.7 (5.4-32.0); CALCIUM 7.9 MG/DL (8.5-10.1); CHLORIDE 106 MMOL/L (99-107); CREATININE 0.76 MG/DL (0.60-1.10); GLUCOSE 114 MG/DL (70-104); MAGNESIUM 2.1 MG/DL (1.5-2.4); PHOSPHORUS 2.5 MG/DL (2.3-4.5); POTASSIUM 4.7 MMOL/L (3.5-5.1); SODIUM 138 MMOL/L (135-145); TOTAL CARBON DIOXIDE 26.4 MMOL/L (24-32); eGFR > 90 ML/MIN
[2021-11-14] MEDS: magnesium 2GM in 50ml NS 50 ML IV PRN (05:05)
--- NOTE | 2021-11-14 06:15 | NUR ---
Problems reprioritized. Patient report given, questions answered & plan of care reviewed with EJ Armendariz.
--- NOTE | 2021-11-14 07:53 | NUR ---
Initial: Pt s/p CABGx3 this admit per EMR. Currently on Regular/NCS diet w/ mostly 75-100% intake of meals before and after procedure. Pt can benefit from Meng smoothies to assist w/ wound healing. [facility] 11/11 receiving routine Senna. Provided pt w/ written and verbal CABG nutrition therapy ed w/ RD contact info. Will continue to monitor Recs: 1. Continue NCS diet as tolerated 2. Meng Smoothies BIDBD; pending MD verification 3. Bowel care per rx 4. Weekly wts Addendum: 11/14/21 at [address] Amended: Links added.
[2021-11-14] MEDS ORDERED: furosemide 40mg/4ml inj IV ONE (08:25)
[2021-11-14] MEDS ORDERED: ATOR10TA PO (08:27)
[2021-11-14] MEDS ORDERED: AMIO200T67 PO (08:27)
[2021-11-14] MEDS ORDERED: HYDR-3972 PO (08:27)
[2021-11-14] MEDS ORDERED: ASPI81TA53 PO (08:27)
[2021-11-14] MEDS ORDERED: LOP12.5T PO (08:27)
[2021-11-14] MEDS: sennosides/docusate sodium tablet PO SCH ×2 (08:41→20:52)
[2021-11-14] MEDS: amiodarone 200mg tablet PO SCH ×2 (08:41→20:51)
[2021-11-14] MEDS: pantoprazole 40mg Tablet.DR PO SCH (08:41)
[2021-11-14] MEDS: metoprolol tartrate 12.5mg (1/2 tablet) PO SCH ×2 (08:41→20:51)
[2021-11-14] MEDS: gabapentin 300mg capsule PO SCH ×2 (08:41→13:17)
[2021-11-14] MEDS: aspirin 81mg tab.chew PO SCH (08:45)
[2021-11-14] MEDS: mupirocin 2% ointment 22GM NS SCH (08:53)
[2021-11-14] MEDS: phenobarbital 30mg tablet PO SCH ×3 (09:56→22:06)
[2021-11-14] MEDS ORDERED: JUVEN Smoothie Arginine/Glut./Ca2+Bmb (Juven 19.3pkt) 240ml cup PO SCH (17:30)
--- NOTE | 2021-11-14 18:11 | NUR ---
Problems reprioritized. Patient report given, questions answered & plan of care reviewed with EJ Painter.
--- NOTE | 2021-11-14 18:31 | NUR ---
Patient in room CICU 2013. I have received report from EJ Armendariz and had the opportunity to ask questions and assume patient care.
[2021-11-14] MEDS: potassium Cl 20 mEq SR tablet PO SCH (20:00)
[2021-11-14] MEDS: atorvastatin 10mg tablet PO SCH (20:51)
[2021-11-14] MEDS: magnesium Cl slow-release 64mg tablet PO SCH (20:51)
[2021-11-15] VITALS (13 sets, daily range): BP systolic 105–145; BP diastolic 64–78
[2021-11-15 05:52] LABS: BASOPHILS % (AUTO) 0.2 % (0-1); EOSINOPHILS # (AUTO) 0.1 X10'3 (0-0.9); EOSINOPHILS % (AUTO) 0.6 % (0-6); HEMATOCRIT 35.1 % (42.0-52.0); HEMOGLOBIN 11.8 g/dl (14.0-17.9); LYMPHOCYTES # (AUTO) 1.6 X10'3 (1.1-4.8); LYMPHOCYTES % (AUTO) 11.7 % (21-51); MEAN CORPUSCULAR HEMOGLOBIN 31.9 PG (27.0-31.0); MEAN CORPUSCULAR HGB CONC 33.6 g/dL (33.0-36.5); MEAN CORPUSCULAR VOLUME 94.9 FL (78-98); MEAN PLATELET VOLUME 9.6 FL (7.4-10.4); MONOCYTES # (AUTO) 1.2 X10'3 (0-0.9); MONOCYTES % (AUTO) 8.9 % (2-12); NEUTROPHILS # (AUTO) 10.6 X10'3 (1.8-7.7); NEUTROPHILS % (AUTO) 78.6 % (42-75); PLATELET COUNT 112 X10'3 (140-440); RED CELL DISTRIBUTION WIDTH 13.4 % (11.5-14.5); WHITE BLOOD COUNT 13.4 X10'3 (4.5-11.0)
[2021-11-15] MEDS: HYDROcodone/acetaminophen 10/325mg tab PO PRN (05:58)
[2021-11-15 06:05] LABS: ALBUMIN 2.5 G/DL (3.4-5.0); ANION GAP 5 (8-16); BLOOD UREA NITROGEN 13 MG/DL (7-18); BUN/CREATININE RATIO 19.7 (5.4-32.0); CALCIUM 7.8 MG/DL (8.5-10.1); CHLORIDE 106 MMOL/L (99-107); CREATININE 0.66 MG/DL (0.60-1.10); GLUCOSE 102 MG/DL (70-104); POTASSIUM 4.4 MMOL/L (3.5-5.1); SODIUM 138 MMOL/L (135-145); TOTAL CARBON DIOXIDE 27.3 MMOL/L (24-32); eGFR > 90 ML/MIN
[2021-11-15] MEDS ORDERED: FURO-150 PO (08:23)
[2021-11-15] MEDS ORDERED: POTA10TA37 PO (08:23)
[2021-11-15] MEDS: potassium Cl 20 mEq SR tablet PO SCH (08:31)
[2021-11-15] MEDS: pantoprazole 40mg Tablet.DR PO SCH (08:31)
[2021-11-15] MEDS: aspirin 81mg tab.chew PO SCH (08:32)
[2021-11-15] MEDS: sennosides/docusate sodium tablet PO SCH (08:32)
[2021-11-15] MEDS: magnesium Cl slow-release 64mg tablet PO SCH (08:32)
[2021-11-15] MEDS: metoprolol tartrate 12.5mg (1/2 tablet) PO SCH (08:32)
[2021-11-15] MEDS: phenobarbital 30mg tablet PO SCH (08:32)
[2021-11-15] MEDS: amiodarone 200mg tablet PO SCH (08:32)
[2021-11-16 07:26] LABS: ACT @ 1.70 U 295 SEC (193-297); ACT @ 2.84 U 422 SEC (260-420); BASELINE ACT 139 SEC (101-148); PATIENT WEIGHT 74.0k KG
== END 2021-11-15 13:10 | disposition home or self-care (01) | DRG 233 ==
LOC: ER 18:14 → UNDOADMIN 19:45 → ED HOLD 19:45 → PCU 3S 22:02 → ED HOLD 22:02 → CICU 2S 11-12 09:22
PROVIDERS: ADMIT Internal Medicine; ATTEND Family Medicine
PROC: 4A023N7 Measurement of Cardiac Sampling and Pressure, Left Heart, Percutaneous Approach (ICD-10-PCS; 2021-11-11)
PROC: 4A02XM4 Measurement of Cardiac Total Activity, External Approach (ICD-10-PCS; 2021-11-11)
PROC: 3E033HZ Introduction of Radioactive Substance into Peripheral Vein, Percutaneous Approach (ICD-10-PCS; 2021-11-11)
PROC: B2111ZZ Fluoroscopy of Multiple Coronary Arteries using Low Osmolar Contrast (ICD-10-PCS; 2021-11-11)
PROC: B3101ZZ Fluoroscopy of Thoracic Aorta using Low Osmolar Contrast (ICD-10-PCS; 2021-11-11)
PROC: B3111ZZ Fluoroscopy of Right Brachiocephalic-Subclavian Artery using Low Osmolar Contrast (ICD-10-PCS; 2021-11-11)
PROC: B3121ZZ Fluoroscopy of Left Subclavian Artery using Low Osmolar Contrast (ICD-10-PCS; 2021-11-11)
PROC: B31N1ZZ Fluoroscopy of Other Upper Arteries using Low Osmolar Contrast (ICD-10-PCS; 2021-11-11)
PROC: B4101ZZ Fluoroscopy of Abdominal Aorta using Low Osmolar Contrast (ICD-10-PCS; 2021-11-11)
PROC: 06BP4ZZ Excision of Right Saphenous Vein, Percutaneous Endoscopic Approach (ICD-10-PCS; 2021-11-12)
PROC: 021109W Bypass Coronary Artery, Two Arteries from Aorta with Autologous Venous Tissue, Open Approach (ICD-10-PCS; 2021-11-12)
PROC: 5A1221Z Performance of Cardiac Output, Continuous (ICD-10-PCS; 2021-11-12)
PROC: B24BZZ4 Ultrasonography of Heart with Aorta, Transesophageal (ICD-10-PCS; 2021-11-12)
PROC: 5A2204Z Restoration of Cardiac Rhythm, Single (ICD-10-PCS; 2021-11-12)
PROC: 02100Z9 Bypass Coronary Artery, One Artery from Left Internal Mammary, Open Approach (ICD-10-PCS; principal; 2021-11-12 08:22)
DX: I25.110 Atherosclerotic heart disease of native coronary artery with unstable angina pectoris (principal); I21.A1 Myocardial infarction type 2; F17.210 Nicotine dependence, cigarettes, uncomplicated; G40.909 Epilepsy, unspecified, not intractable, without status epilepticus; Z20.822 Contact with and (suspected) exposure to COVID-19; F32.A Depression, unspecified; F41.9 Anxiety disorder, unspecified; Z85.828 Personal history of other malignant neoplasm of skin
CPT/HCPCS: 36415; 36600; 71045; 71046; 78452; 80048; 80053; 80061; 81001; 82330; 82435; 82803; 82947; 82948; 83036; 83735; 83880; 84100; 84132; 84295; 84484; 85018; 85025; 85347; 85384; 85610; 85730; 86885; 86900; 86901; 86920; 87070; 87081; 87635; 93005; 93017; 93306; 93312; 93325; 93454; 93567; 93880; 93931; 93970; 94002; 94010; 94664; 94668; 94760; 97116; 97161; 97530; 99152; 99153; 99285; A4333; A4615; A4618; A4620; A6213; A6258; A6402; A6449; A7000; A7048; A9500; C1713; C1751; C1760; C1769; G0378; J0171; J0282; J0690; J1100; J1200; J1644; J1815; J1885; J1940; J2060; J2150; J2250; J2270; J2370; J2405; J2440; J2560; J2704; J2720; J2785; J2930; J3010; J3370; J3475; J3480; J3490; J7030; J7040; J7050; J7060; J7120; P9045; P9047; Q9967